=== PATIENT | female | born 1945 | race Caucasian/White ===

== ENCOUNTER 2016-09-01 11:22 | Inpatient (IN) | payer MEDICARE, MEDICAID ==
[~2016-09-01] VITALS: Ht 157.5 cm; Wt 49.9 kg
[2016-09-01] MEDS ORDERED: LATA2.5D2 (11:33)
[2016-09-01] MEDS ORDERED: LOSA100T14 (11:33)
[2016-09-01] MEDS ORDERED: ATEN100T (11:33)
[2016-09-01] MEDS ORDERED: HYDR-2510 (11:33)
[2016-09-01] MEDS ORDERED: CIPR-213 (11:33)
[2016-09-01] MEDS ORDERED: CLON0.3T (11:33)
[2016-09-01] MEDS ORDERED: KETOROLAC 30MG/ML VIAL IV STA (12:49)
[2016-09-01] MEDS ORDERED: HYDRALAZINE 20MG/ML VIAL IV ONE (13:00)
[2016-09-01 13:11] LABS: CLARITY URINE CLEAR (CLEAR); COLOR URINE YELLOW (YELLOW); GLUCOSE URINE NEGATIVE (NEGATIVE); KETONES URINE NEGATIVE (NEGATIVE); LEUKOCYTE ESTERASE URINE NEGATIVE (NEGATIVE); NITRITE URINE NEGATIVE (NEGATIVE); OCCULT BLOOD URINE NEGATIVE (NEGATIVE); PROTEIN URINE NEGATIVE (NEGATIVE); SPECIFIC GRAVITY URINE 1.004 (1.005-1.030); UROBILINOGEN URINE 0.2 E.U./dL (0.2-1.0)
[2016-09-01 13:20] LABS: BASOPHILS % 0.4 % (0.0-2.0); EOSINOPHILS % 0.2 % (0.0-5.0); HEMATOCRIT. 40.2 % (36.0-48.0); HEMOGLOBIN. 13.3 g/dL (12.0-16.0); LYMPHOCYTES % 19.6 % (20.0-50.0); MEAN CORPUSCULAR HEMOGLOBIN 28.7 pg (28.0-32.0); MEAN CORPUSCULAR VOLUME 86.9 fL (81.0-99.0); MEAN PLATELET VOLUME 8.7 fl (7.4-10.4); MONOCYTES % 3.6 % (2.0-8.0); NEUTROPHILS % 76.2 % (40.0-76.0); PLATELET 250 x1000/uL (130-400); RED BLOOD CELL COUNT 4.63 mill/uL (4.2-5.4); RED CELL DISTRIBUTION WIDTH 13.6 % (11.6-14.6); WHITE BLOOD COUNT 8.2 x1000/uL (4.5-11.0)
[2016-09-01 13:24] LABS: CHLORIDE 101 mEq/L (98-107); INDEX HEMOLYSI 1 (1-3); INDEX ICTERIC 1 (1-4); INDEX LIPEMIC 1 (1-3)
[2016-09-01 13:30] LABS: ALANINE AMINOTRANSFERASE 25 IU/L (13-61); ANION GAP 12; CALCIUM 9.1 mg/dL (8.5-10.1); CARBON DIOXIDE 29 mEq/L (21-32); ETHANOL BLOOD < 10 mg/dL; UREA NITROGEN BLOOD 11 mg/dL (7-21); eGFR > 60 mL/min (>60)
[2016-09-01 13:33] LABS: NT PRO B-TYPE NATRIURETIC PEP 1983 pg/mL (5-125)
[2016-09-01 13:35] LABS: *AMPHETAMINES SCREEN URINE NEGATIVE (NEGATIVE); *BARBITURATES SCREEN URINE NEGATIVE (NEGATIVE); *BENZODIAZEPINES SCREEN URINE NEGATIVE (NEGATIVE); *COCAINE SCREEN URINE NEGATIVE (NEGATIVE); CANNABINOID URINE SCREEN NEGATIVE (NEGATIVE); ECSTASY MDMA SCREEN URINE NEGATIVE (NEGATIVE); METHADONE URINE SCREEN NEGATIVE (NEGATIVE); OPIATES URINE SCREEN NEGATIVE (NEGATIVE); PHENCYCLIDINE URINE SCREEN NEGATIVE (NEGATIVE)
[2016-09-01 13:47] LABS: D-DIMER 1.16 mg/L FEU (<0.50); PROTHROMBIN TIME 10.7 sec
[2016-09-01] MEDS ORDERED: SODIUM CHLORIDE 0.9% 10ML VIAL ONE (14:13)
[2016-09-01] MEDS ORDERED: IOHEXOL-300 100 ML BOTTLE ONE (14:13)
[2016-09-01] MEDS ORDERED: ONDANSETRON HCL 4MG/2ML VIAL IV PRN (15:00)
[2016-09-01] MEDS ORDERED: MAGNESIUM/ALUMINUM HYDROXIDE/SIMETHICONE 30ML UDC PO PRN (15:00)
[2016-09-01] MEDS ORDERED: LORAZEPAM 2MG/ML CPJ IV PRN (15:00)
[2016-09-01] MEDS ORDERED: DIPHENHYDRAMINE 50MG/ML VIAL IV PRN (15:00)
[2016-09-01] MEDS ORDERED: NA PHOS,M-B/NA PHOS,DI-BA ENEMA 118ML PR PRN (15:00)
[2016-09-01] MEDS ORDERED: CLONIDINE 0.1MG TABLET PO PRN (15:00)
[2016-09-01] MEDS ORDERED: ACETAMINOPHEN 325MG TABLET PO PRN (15:00)
[2016-09-01] MEDS ORDERED: IPRATROPIUM/ALBUTEROL 0.5-3(2.5)MG/3ML NEB INH PRN (15:00)
[2016-09-01] MEDS ORDERED: HYDROCODONE/ACETAMINOPHEN 5/325MG TABLET PO PRN (15:00)
[2016-09-01] MEDS ORDERED: DOCUSATE SODIUM 100MG CAPSULE PO PRN (15:00)
[2016-09-01] MEDS ORDERED: HYDROMORPHONE HCL/PF 2MG/ML CPJ IV PRN (15:00)
[2016-09-01 15:15] VITALS: BP 164/89
[2016-09-01 15:41] VITALS: BP 164/89
[2016-09-01] MEDS: ENOXAPARIN 40MG/0.4ML SYR SUBCUT SCH (16:22)
[2016-09-01 17:28] LABS: ANION GAP 14; CALCIUM 9.2 mg/dL (8.5-10.1); CARBON DIOXIDE 26 mEq/L (21-32); CHLORIDE 104 mEq/L (98-107); INDEX HEMOLYSI 1 (1-3); INDEX ICTERIC 1 (1-4); INDEX LIPEMIC 1 (1-3); UREA NITROGEN BLOOD 11 mg/dL (7-21); eGFR > 60 mL/min (>60)
[2016-09-01 20:00] VITALS: BP 180/81
[2016-09-01 20:05] LABS: CHLORIDE 102 mEq/L (98-107); INDEX HEMOLYSI 1 (1-3); INDEX ICTERIC 1 (1-4); INDEX LIPEMIC 1 (1-3)
[2016-09-01 20:12] LABS: ANION GAP 14; CARBON DIOXIDE 27 mEq/L (21-32); UREA NITROGEN BLOOD 11 mg/dL (7-21); eGFR > 60 mL/min (>60)
[2016-09-01] MEDS: CLONIDINE 0.3MG TABLET PO SCH (21:14)
[2016-09-01] MEDS: LATANOPROST 0.005% OPHTH DROPS 2.5ML BOTHEYE SCH (21:14)
[2016-09-02] VITALS (7 sets, daily range): BP systolic 124–159; BP diastolic 66–85
[2016-09-02] MEDS: CLONIDINE 0.3MG TABLET PO SCH ×3 (05:06→23:10)
[2016-09-02 06:33] LABS: BASOPHILS % 0.5 % (0.0-2.0); EOSINOPHILS % 1.8 % (0.0-5.0); HEMATOCRIT. 37.9 % (36.0-48.0); HEMOGLOBIN. 12.7 g/dL (12.0-16.0); LYMPHOCYTES % 41.2 % (20.0-50.0); MEAN CORPUSCULAR HEMOGLOBIN 29.4 pg (28.0-32.0); MEAN CORPUSCULAR HGB CONC 33.6 g/dL (31.0-37.0); MEAN CORPUSCULAR VOLUME 87.6 fL (81.0-99.0); MEAN PLATELET VOLUME 9.6 fl (7.4-10.4); MONOCYTES % 10.2 % (2.0-8.0); NEUTROPHILS % 46.3 % (40.0-76.0); PLATELET 232 x1000/uL (130-400); RED BLOOD CELL COUNT 4.33 mill/uL (4.2-5.4); WHITE BLOOD COUNT 7.6 x1000/uL (4.5-11.0)
[2016-09-02 06:39] LABS: CHLORIDE 104 mEq/L (98-107); INDEX HEMOLYSI 1 (1-3); INDEX ICTERIC 1 (1-4); INDEX LIPEMIC 1 (1-3)
[2016-09-02 06:54] LABS: ALANINE AMINOTRANSFERASE 21 IU/L (13-61); ALBUMIN 3.3 g/dL (3.4-5.0); ANION GAP 14; CALCIUM 8.8 mg/dL (8.5-10.1); CARBON DIOXIDE 25 mEq/L (21-32); HDL CHOLESTEROL 67 mg/dL (40-59); LDL CHOLESTEROL 136 mg/dL (5-100); NT PRO B-TYPE NATRIURETIC PEP 4650 pg/mL (5-125); T4 FREE 1.14 ng/dL (0.76-1.46); TRIGLYCERIDE 96 mg/dL (0-150); TROPONIN I 0.03 ng/mL (0.00-0.04); UREA NITROGEN BLOOD 14 mg/dL (7-21); eGFR > 60 mL/min (>60)
[2016-09-02] MEDS: LOSARTAN POTASSIUM 100 MG TABLET PO SCH (08:17)
[2016-09-02] MEDS: ASPIRIN 81MG EC TABLET PO SCH (08:18)
[2016-09-02] MEDS: ATENOLOL 100 MG TABLET PO SCH (08:18)
[2016-09-02] MEDS: ENOXAPARIN 40MG/0.4ML SYR SUBCUT SCH (16:23)
[2016-09-02] MEDS: HYDRALAZINE HCL 25MG TABLET PO SCH (23:09)
[2016-09-02] MEDS: LATANOPROST 0.005% OPHTH DROPS 2.5ML BOTHEYE SCH (23:10)
[2016-09-03] VITALS (7 sets, daily range): BP systolic 136–189; BP diastolic 73–90
[2016-09-03] MEDS: CLONIDINE 0.3MG TABLET PO SCH ×2 (05:31→13:43)
[2016-09-03] MEDS: HYDRALAZINE HCL 25MG TABLET PO SCH ×2 (05:31→13:24)
[2016-09-03] MEDS: ASPIRIN 81MG EC TABLET PO SCH (09:20)
[2016-09-03] MEDS: LOSARTAN POTASSIUM 100 MG TABLET PO SCH ×2 (09:20→18:27)
[2016-09-03] MEDS: ATENOLOL 100 MG TABLET PO SCH (09:21)
[2016-09-03] MEDS ORDERED: CLONIDINE 0.1MG TABLET PO NR (16:15)
[2016-09-03] MEDS ORDERED: LOSARTAN POTASSIUM 100 MG TABLET PO SCH (17:15)
[2016-09-03] MEDS: ENOXAPARIN 40MG/0.4ML SYR SUBCUT SCH (18:28)
[2016-09-03] MEDS: LATANOPROST 0.005% OPHTH DROPS 2.5ML BOTHEYE SCH (21:31)
[2016-09-03] MEDS: HYDRALAZINE HCL 50MG TABLET PO SCH (21:31)
[2016-09-03] MEDS: CLONIDINE 0.2MG TABLET PO SCH (21:31)
[2016-09-04] VITALS: BP 137/77
[2016-09-04 04:00] VITALS: BP 183/86
[2016-09-04] MEDS: HYDRALAZINE HCL 50MG TABLET PO SCH (06:28)
[2016-09-04] MEDS: CLONIDINE 0.2MG TABLET PO SCH (06:28)
[2016-09-04 07:00] VITALS: BP 155/78
[2016-09-04] MEDS: LOSARTAN POTASSIUM 100 MG TABLET PO SCH (08:56)
[2016-09-04] MEDS: ASPIRIN 81MG EC TABLET PO SCH (08:56)
[2016-09-04] MEDS: ATENOLOL 100 MG TABLET PO SCH (08:57)
[2016-09-04] MEDS: HYDRALAZINE HCL 100MG TABLET PO SCH ×2 (11:45→18:00)
[2016-09-04] MEDS: DOXAZOSIN MESYLATE 4MG TABLET PO SCH ×2 (11:45→17:00)
[2016-09-04 12:00] VITALS: BP 152/87
[2016-09-04] MEDS: CLONIDINE 0.1MG TABLET PO SCH ×2 (14:39→21:05)
[2016-09-04 16:00] VITALS: BP 98/58
[2016-09-04] MEDS: ENOXAPARIN 40MG/0.4ML SYR SUBCUT SCH (16:24)
[2016-09-04 20:00] VITALS: BP 140/72
[2016-09-04] MEDS: LATANOPROST 0.005% OPHTH DROPS 2.5ML BOTHEYE SCH (21:05)
[2016-09-05] VITALS: BP 120/67
[2016-09-05] MEDS: HYDRALAZINE HCL 100MG TABLET PO SCH ×2 (00:29→06:12)
[2016-09-05 04:00] VITALS: BP 137/79
[2016-09-05] MEDS: CLONIDINE 0.1MG TABLET PO SCH (06:11)
[2016-09-05 08:04] VITALS: BP 125/69
[2016-09-05] MEDS: LOSARTAN POTASSIUM 100 MG TABLET PO SCH (09:47)
[2016-09-05] MEDS: ASPIRIN 81MG EC TABLET PO SCH (09:47)
[2016-09-05] MEDS: ATENOLOL 100 MG TABLET PO SCH (09:48)
[2016-09-05] MEDS: DOXAZOSIN MESYLATE 4MG TABLET PO SCH (09:50)
[2016-09-05] MEDS ORDERED: CLONIDINE 0.1MG TABLET PO SCH ×2 (10:00→21:00)
[2016-09-05 12:00] VITALS: BP 120/63
[2016-09-05 12:33] VITALS: BP 120/63
[2016-09-05] MEDS ORDERED: HYDRALAZINE HCL 100MG TABLET PO SCH (21:00)
== END 2016-09-05 13:05 | disposition home or self-care (01) | DRG 305 ==
LOC: ER 12:07 → 7WST 12:52
PROVIDERS: ADMIT Internal Medicine; ATTEND Internal Medicine
DX: I16.1 Hypertensive emergency (principal); I67.4 Hypertensive encephalopathy; I24.9 Acute ischemic heart disease, unspecified; I50.22 Chronic systolic (congestive) heart failure; E87.8 Other disorders of electrolyte and fluid balance, not elsewhere classified; E78.5 Hyperlipidemia, unspecified; E78.00 Pure hypercholesterolemia, unspecified; Z86.73 Personal history of transient ischemic attack (TIA), and cerebral infarction without residual deficits; Z79.899 Other long term (current) drug therapy; Z87.440 Personal history of urinary (tract) infections
CPT/HCPCS: 36415; 70450; 70491; 80048; 80053; 80061; 80305; 81003; 83880; 84439; 84443; 84484; 85025; 85379; 85610; 93005; 96374; 96375; 99291; A4216; G0482; J0360; J1650; J1885; Q9967

== ENCOUNTER 2023-01-13 22:02 | Emergency (ER) | payer MEDICARE, MEDICAID ==
[~2023-01-13] VITALS: Ht 157.5 cm; Wt 49.8 kg
[~2023-01-13 22:02] MED LIST: ATEN100T; CLON0.3T; HYDR50TA; LATA2.5D14; LOSA100T33
[2023-01-13 22:11] VITALS: BP 124/61; O2SAT 100
[2023-01-14 05:13] VITALS: PULSE 78; RESP 16; TEMP 97.7
== END 2023-01-14 05:13 | disposition home or self-care (01) ==
LOC: ER 22:02
DX: J44.1 Chronic obstructive pulmonary disease with (acute) exacerbation (principal); J84.10 Pulmonary fibrosis, unspecified; E78.00 Pure hypercholesterolemia, unspecified; I10 Essential (primary) hypertension
CPT/HCPCS: 71045; 99283